=== PATIENT | female | born 1960 | race Caucasian/White ===

== ENCOUNTER 2022-12-06 10:30 | Outpatient (RCR) | payer OTHER, SELFPAY ==
--- NOTE | 2022-12-04 10:15 | ONC.NURNOTE ---
Dx: Cholangiocarcinoma
[2022-12-06 09:58] VITALS: BP 122/71; PULSE 85; RESP 16; TEMP 36.3; O2SAT 100
[2022-12-06 10:59] VITALS: BP 122/71; PULSE 85; RESP 16; TEMP 36.3; O2SAT 100
[2022-12-06 11:18] VITALS: BP 127/80; PULSE 77; RESP 16; TEMP 36.7; O2SAT 99
[2022-12-06 12:03] VITALS: BP 141/87; PULSE 69; RESP 16; TEMP 36.6; O2SAT 99
[2022-12-06 13:03] VITALS: BP 131/84; PULSE 80; RESP 16; TEMP 36.7; O2SAT 98
[2022-12-06 13:45] VITALS: BP 112/76; PULSE 69; RESP 16; TEMP 37.1; O2SAT 99
== END 2023-06-02 23:59 | disposition home or self-care (01) ==
LOC: CCIC 10:30
PROVIDERS: Visit Provider Clinical Nurse Specialist
DX: C22.1 Intrahepatic bile duct carcinoma (principal)
CPT/HCPCS: 36415; 36430; 86850; 86900; 86901; 86922; P9016